=== PATIENT | male | born 1960 | race Caucasian/White ===

== ENCOUNTER → 2017-03-24 | Outpatient (CLI) | payer OTHER | LOC: BRMIMAGING 14:19 | PROVIDERS: ATTEND Physician Assistant | DX: J40 Bronchitis, not specified as acute or chronic (principal); F17.200 Nicotine dependence, unspecified, uncomplicated | CPT/HCPCS: 71020-PO ==

== ENCOUNTER → 2018-09-24 | Outpatient (CLI) | payer OTHER | LOC: BRMIMAGING 14:02 | PROVIDERS: ATTEND Family Medicine | DX: M25.60 Stiffness of unspecified joint, not elsewhere classified (principal); M19.241 Secondary osteoarthritis, right hand; M19.242 Secondary osteoarthritis, left hand; M47.892 Other spondylosis, cervical region | CPT/HCPCS: 72040-PO; 73120-PO ==